=== PATIENT | female | born 1960 | race American Indian/Alaskan Native ===

== ENCOUNTER 2017-02-06 12:08 | Emergency (ER) | payer OTHER ==
[2017-02-06 12:41] VITALS: BP 124/84
--- NOTE | 2017-02-06 14:05 | XRay Report ---
RIGHT TOE RADIOGRAPHS INDICATION: Pain, status post injury to fifth digit. COMPARISON: None similar. FINDINGS: AP view of the right foot with oblique and lateral projections centered on the fifth digit demonstrate a spiral fracture through the mid aspect of the fifth proximal phalanx, not significantly displaced. No joint involvement. Slight overlying soft tissue swelling not excluded. Demineralized bones with normal remainder exam. CONCLUSION: Acute nondisplaced right fifth toe proximal phalanx shaft fracture, as described. Thank you for the opportunity to participate in this patient's care.
[2017-02-06] MEDS ORDERED: MOTRIN PO ONE (15:36)
--- NOTE | 2017-02-06 18:46 | Emergency Department Report ---
Entered by EVGENY DUKE, acting as scribe for TIM ZARATE NP. ED Lower Extremity HPI - General Chief Complaint: Extremity Injury, Lower Stated Complaint: RT FOOT SMALL TOE INJURY Time Seen by Provider: 02/06/17 14:45 Source: patient Mode of arrival: Ambulatory Limitations: No Limitations - History of Present Illness Initial Comments: This is a 56 year old female nontoxic, well nourished in appearance, no acute signs of distress, with lower extremity pain to her right fifth toe s/p direct blow from hitting chair around 1100 this morning. Patient states she hit her right fifth toe at work during sitting down on a chair. She reports aggravation while walking and palpation. Patient denies any swelling. Denies any deformity and denies putting toe back "into place" as per triage notes. Patient denies deformity, headache, dizziness, numbness, tingling, CP, SOB, joint swelling, joint redness, numbness, tingling. Patient stated allergies to Dilaudid, iodine, and sulfa drugs. Patient has past medical history besides Crohn's disease. MD Complaint: foot injury (right fifth toe) -: This morning (1100) Injury: Toes: Right (fifth toe) Type of Injury: unknown Place: work (desk chair ) Severity: moderate Severity scale (0 -10): 4 Improves With: nothing Worsens With: weight bearing, movement, palpation Context: direct blow, walking Associated Symptoms: able to partially bear weight, ambulatory. denies: snap/ pop sensation, swelling, numbness, tingling - Related Data Previous Rx's Medication Instructions Recorded Last Taken Type Ibuprofen [Motrin 600 MG tab] 600 mg PO Q8H PRN #20 tablet 02/06/17 Unknown Rx Allergies Allergy/AdvReac Type Severity Reaction Status Date / Time hydromorphone HCl Allergy Unknown Verified 02/06/17 12:36 [From Dilaudid] iodine Allergy Rash Verified 02/06/17 12:36 Sulfa (Sulfonamide Allergy Unknown Verified 02/06/17 12:36 Antibiotics) ED Review of Systems Comment: All other systems reviewed and negative Constitutional: denies: chills, fever Eyes: denies: eye pain, eye discharge, vision change ENT: denies: ear pain, throat pain Respiratory: denies: cough, shortness of breath, wheezing Cardiovascular: denies: chest pain, palpitations Endocrine: no symptoms reported Gastrointestinal: denies: abdominal pain, nausea, vomiting, diarrhea Genitourinary: denies: urgency, dysuria, discharge Musculoskeletal: denies: back pain, joint swelling, arthralgia Skin: denies: rash, lesions Neurological: denies: headache, weakness, paresthesias Psychiatric: denies: anxiety, depression Hematological/Lymphatic: denies: easy bleeding, easy bruising ED Past Medical Hx - Past Medical History Additional medical history: CHRON'S - Surgical History Additional Surgical History: COLON RESECTION/ TONSILS. CATARACTS / EYE SURGERY - Social History Smoking Status: Never Smoker Substance Use Type: Alcohol - Medications Home Medications: Home Medications Medication Instructions Recorded Confirmed Last Taken Type Ibuprofen [Motrin 600 MG tab] 600 mg PO Q8H PRN #20 tablet 02/06/17 Unknown Rx ED Physical Exam - General Limitations: No Limitations General appearance: alert, in no apparent distress - Head Head exam: Present: atraumatic, normocephalic, normal inspection - Eye Eye exam: Present: normal appearance, PERRL, EOMI. Absent: scleral icterus, conjunctival injection, nystagmus, periorbital swelling, periorbital tenderness Pupils: Present: normal accommodation. Absent: irregular - ENT ENT exam: Present: normal exam, normal orophraynx, mucous membranes moist, TM's normal bilaterally, normal external ear exam - Neck Neck exam: Present: normal inspection, full ROM. Absent: tenderness, meningismus, lymphadenopathy, thyromegaly - Respiratory Respiratory exam: Present: normal lung sounds bilaterally. Absent: respiratory distress, wheezes, rales, rhonchi, stridor, chest wall tenderness, accessory muscle use, decreased breath sounds, prolonged expiratory - Cardiovascular Cardiovascular Exam: Present: regular rate, normal rhythm, normal heart sounds. Absent: bradycardia, tachycardia, irregular rhythm, systolic murmur, diastolic murmur, rubs, gallop - GI/Abdominal GI/Abdominal exam: Present: soft, normal bowel sounds. Absent: distended, tenderness, guarding, rebound, rigid - Extremities Exam Extremities exam: Present: normal inspection, full ROM, tenderness, normal capillary refill. Absent: pedal edema, joint swelling, calf tenderness - Expanded Lower Extremity Exam Right Hip exam: Present: normal inspection, full ROM, external rotation, internal rotation, pelvic stability. Absent: tenderness, swelling, abrasion, laceration , ecchymosis, deformity, crepidus, dislocation, erythema, shortening Upper Leg exam: Present: normal inspection, full ROM. Absent: tenderness, swelling, abrasion, laceration, ecchymosis, deformity, crepidus, dislocation, erythema Knee exam: Present: normal inspection, full ROM, full knee extension. Absent: tenderness, swelling, abrasion, laceration, ecchymosis, deformity, crepidus, dislocation, erythema, effusion, pain w/ pronation/supination, posterior draw sign, pain/laxity with valgus, pain/laxity with varus Lower Leg exam: Present: normal inspection, full ROM. Absent: tenderness, swelling, abrasion, laceration, ecchymosis, deformity, crepidus, dislocation, erythema, palpable cord, Cynthia's sign Ankle exam: Present: normal inspection, full ROM. Absent: tenderness, swelling , abrasion, laceration, ecchymosis, deformity, crepidus, dislocation, erythema, anterior draw sign Foot/Toe exam: Present: normal inspection, full ROM, tenderness. Absent: swelling, abrasion, laceration, ecchymosis, deformity, crepidus, dislocation, erythema, amputation, puncture wound, foreign body, calcaneal tenderness, tenderness at base of 5th metatarsal, nail avulsion, subungual hematoma Neuro vascular tendon exam: Present: no vascular compromise. Absent: pulse deficit, abnormal cap refill, motor deficit, sensory deficit, tendon deficit, extremity cold to touch, pallor, abnormal 2-point discrimination, decreased fine /light touch, foot drop, peroneal nerve deficit, significant pain with passive ROM of distal joint Gait: Positive: observed and limited by pain 1 - Fracture. Tendernss. Normal ROM. - Back Exam Back exam: Present: normal inspection, full ROM. Absent: tenderness, CVA tenderness (R), CVA tenderness (L), muscle spasm, paraspinal tenderness, vertebral tenderness, rash noted - Neurological Exam Neurological exam: Present: alert, oriented X3, CN II-XII intact, normal gait, reflexes normal - Psychiatric Psychiatric exam: Present: normal affect, normal mood - Skin Skin exam: Present: warm, dry, intact, normal color. Absent: rash - Other Other exam information: Normal ROM with pain of the right fifth toe. Vascular stable. No signs of swelling. No deformity present. ED Course Vital Signs 02/06/17 12:37 Temperature 98.4 F Pulse Rate 74 Respiratory 18 Rate Blood Pressure 124/84 O2 Sat by Pulse 98 Oximetry - Reevaluation(s) Reevaluation #1: 02/06/17 15:45 Patient is able to speak in full sentences with no signs of distress. ED Lower Extremity MDM - Medical Decision Making Ed course: This is a 56-year-old female that presents with nondisplaced right fifth toe proximal phalanx shaft fracture Patient was examined by myself. An x-ray has been obtained and dictated by Dr. Hedrick. Impression; acute nondisplaced right fifth proximal phalanx shaft fracture. Patient was notified of x-ray findings when therefore that was noted by the patient. Fifth toe and fourth toe has been sayda taped in the ED. patient also received a surgical shoe. The patient was instructed to follow-up with Dr. Da Silva or an orthopedic doctor in 3-5 days or if symptoms such as swelling, numbness, tingling, fever, chills, chest pain or short of breath returns for emergency admission was possible. Patient was instructed to rice therapy. At time time of discharge, the patient does not seem toxic or ill in appearance. No acute signs of distress noted. Patient agrees to discharge treatment plan of care. No further questions noted by the patient. Patient also received ibuprofen at a time of discharge and in the ED. ED Disposition Clinical Impression: Fracture of phalanx of toe Qualifiers: Encounter type: initial encounter Toe: lesser toe Fracture type: closed Phalanx : proximal Fracture alignment: nondisplaced Laterality: right Qualified Code(s) : S92.514A - Nondisplaced fracture of proximal phalanx of right lesser toe(s), initial encounter for closed fracture Disposition: - TO HOME OR SELFCARE Is pt being admited?: No Does the pt Need Aspirin: No Condition: Stable Instructions: Toe Fracture (ED), Ibuprofen (By mouth) Additional Instructions: Follow-up with Dr. Da Silva or another orthopedic doctor in 3-5 days or if symptoms such as swelling, numbness, tingling, fever, chills, chest pain or short of breath returns for emergency admission was possible. Rest, elevate, ice extremity. Take ibuprofen as prescribed as needed for pain. Prescriptions: Ibuprofen [Motrin 600 MG tab] 600 mg PO Q8H PRN #20 tablet PRN Reason: Pain Referrals: OSIEL ERICKSON MD [Primary Care Provider] - 3-5 Days OSIEL DA SILVA MD [Staff Physician] - 3-5 Days [facility] [Outside] - 3-5 Days [facility] [place] [facility] [place] - 3-5 Days Forms: Work/School Release Form(ED) This documentation as recorded by the LEILANI fonseca PEARL,accurately reflects the service I personally performed and the decisions made by ,TIM ZARATE, CAITLIN.
== END 2017-02-06 16:12 | disposition home or self-care (01) ==
LOC: ED 12:08
DX: S92.514A Nondisplaced fracture of proximal phalanx of right lesser toe(s), initial encounter for closed fracture (principal); Z88.2 Allergy status to sulfonamides; Z91.02 Food additives allergy status; Z88.8 Allergy status to other drugs, medicaments and biological substances; W22.8XXA Striking against or struck by other objects, initial encounter; Y93.89 Activity, other specified; Y99.9 Unspecified external cause status; Y92.89 Other specified places as the place of occurrence of the external cause
CPT/HCPCS: 99283